=== PATIENT | female | born 1995 | race Caucasian/White ===

== ENCOUNTER 2017-09-28 17:40 | Emergency (ER) | payer OTHER ==
[~2017-09-28] VITALS: Ht 157.5 cm; Wt 49.0 kg
[~2017-09-28 17:40] MED LIST: DEPO150I IM
[2017-09-28 17:42] VITALS: BP 117/76; PULSE 80; RESP 14; TEMP 98.9; O2SAT 99
[2017-09-28] MEDS ORDERED: [UNRECOGNIZED DRUG - CODE] (17:55)
--- NOTE | 2017-09-28 18:44 | PD ---
HPI . Sore throat x 5 days Chief Complaint: ENT Complaint Time Seen by Provider: 18:23 Travel History International Travel<30 days: No Contact w/Intl Traveler<30days: No Traveled to known affect area: No History of Present Illness HPI 22 year old female presents to the emergency department for evaluation of sore throat and low-grade fevers x 5 days. She denies any ear pain, cough, chest pain, shortness breath. Patient denies any major medical history and doesn't take any daily medication. 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 [facility] Social History Alcohol Use: No Tobacco Use: No Substance Use: No Allergies-Medications (Allergen,Severity, Reaction): Coded Allergies: No Known Allergies (Verified Adverse Reaction, Unknown, 09/28/17) Reported Meds & Prescriptions Reported Meds & Active Scripts Active Depo-Provera Inj (Medroxyprogesterone Inj) 150 Mg/Ml Inj 150 Mg IM Q90D Reported Cold & Flu Fighter Cap (C/Ech/Stjwort/Eldr/Sging/Hrb30) 1 Each Capsule Review of Systems Except as stated in HPI: all other systems reviewed are Neg HENT: Positive: Sore Throat Physical Exam Narrative GENERAL: Well-nourished, well-developed 22 year old female patient in no acute distress. Nontoxic appearing. SKIN: Focused skin assessment warm/dry. HEAD: Normocephalic. Atraumatic. EYES: No scleral icterus. No injection or drainage. EARS: Bilateral pinnae and external canals appear within normal limits. Bilateral tympanic membranes without erythema, dullness or perforation. THROAT: Mild to moderate pharyngeal injection with and tonsillar hypertrophy. Uvula is midline. Airway is patent. NECK: Supple, trachea midline. No JVD or lymphadenopathy. CARDIOVASCULAR: Regular rate and rhythm without murmurs, gallops, or rubs. RESPIRATORY: Breath sounds equal bilaterally. No accessory muscle use. GASTROINTESTINAL: Abdomen soft, non-tender, nondistended. MUSCULOSKELETAL: No cyanosis, or edema. Data Data Last Documented VS Vital Signs Date Time Temp Pulse Resp B/P (MAP) Pulse Ox O2 Delivery O2 Flow Rate FiO2 09/28/17 17:42 98.9 80 14 117/76 (90) 99 Orders Orders Group A Rapid Strep Screen (09/28/17 18:27) Strep Culture (Group A) (09/28/17 18:40) [facility] Medical Decision Making Medical Screen Exam Complete: Yes Emergency Medical Condition: Yes Differential Diagnosis Differential diagnoses include but not limited to pharyngitis, URI, viral syndrome Narrative Course 22-year-old female presents to emergency room for evaluation of sore throat and fever 5 days. Rapid strep ordered and pending. Rapid strep negative. Patient discharged home. Patient given instructions for supportive care, told to return to emergency department with any worsening condition but otherwise follow up with her primary care. Diagnosis Primary Impression: Viral upper respiratory illness Referrals: Primary Care Physician Patient Instructions: General Instructions, Upper Respiratory Infection (ED) Additional Instructions: Please return to emergency department if your symptoms return or worsen. Follow up with your primary care provider. Take medications as prescribed. Taking [id number] ibuprofen and Tylenol as a for pain or fever. Supportive care, stay hydrated, get enough rest, diet as tolerated. Disposition: 01 DISCHARGE HOME Condition: Stable Halie Duran Sep 28, 2017 18:44
== END 2017-09-28 20:39 | disposition home or self-care (01) ==
LOC: NEPK 17:40
DX: J06.9 Acute upper respiratory infection, unspecified (principal)
CPT/HCPCS: 87081; 87880; 99283

== ENCOUNTER 2018-08-05 16:18 | Observation (INO) ==
[2018-08-05] MEDS ORDERED: Famotidine 20 MG Tablet PO ONE (17:11)
--- NOTE | 2018-08-05 17:16 | ED ---
HPI General Chief complaint: Skin/Abscess/Foreign Body Stated complaint: BREAK-OUT IN HIVES XY Time Seen by Provider: 08/05/18 16:40 Source: patient Mode of arrival: ambulatory Limitations: no limitations History of Present Illness HPI narrative: 23-year-old approximately 9-week female presents to the emergency room for evaluation of generalized hives that started yesterday. Patient states symptoms started on her abdomen and has since spread to the rest of her body. She took [id number] Benadryl without any relief in symptoms. She denies any new exposure to food, medication, or environment. Denies any fever, chills, nausea, vomiting. No chronic medical conditions or daily medications. No history of eczema. She has not seen an [employer] GENER[employer] MANAGER yet. MD complaint: Reports rash Onset (ago): day(s) Tetanus Immunization: <5 Years Location: Reports generalized Severity: severe Severity scale (1-10): 10 Quality: Reports pruritic Pain Consistency: constant Relieving factors: none Exacerbating factors: none Context: Reports none Associated symptoms: Reports denies other symptoms Treatments prior to arrival: Reports Benadryl Related Data Home Medications Medication Instructions Recorded Confirmed diphenhydramine HCl [Benadryl] 50 mg PO Q4-6H PRN 08/05/18 08/05/18 Previous Rx's Medication Instructions Recorded cetirizine 10 mg PO DAILY #30 tab 08/05/18 famotidine 10 mg PO DAILY #15 tab 08/05/18 epinephrine 0.3 mg/m2 SUBCUT Q15M #3 ml 08/06/18 Allergies Allergy/AdvReac Type Severity Reaction Status Date / Time No Known Allergies Allergy Verified 08/05/18 16:20 Review of Systems ROS: all other systems reviewed are negative PMFSH Medical History Medical History No active medical problems (Acute) (Acute) Surgical History Surgical History H/O breast surgery (Acute) Family History Family History Other Adopted person Social History Social History Substance History: No History of Abuse Second Hand Smoke Exposure: No Smoking Status: Former smoker Tobacco Type: Cigarettes How Often Do You Have a Drink Containing Alcohol: Monthly or less Recent [facility] within the Last 8 Weeks: No Recent Out of Country Travel within the Last 8 Weeks: No Immunization History Tetanus Immunization: <5 Years Exam Narrative Exam Narrative: GENERAL: Well-nourished, well-developed female no acute distress. Afebrile. Ambulatory. SKIN: Focused skin assessment warm/dry. Generalized erythematous plaques and urticaria especially on the abdomen, upper and lower extremities, and back. HEAD: Normocephalic. EYES: No scleral icterus. No injection or drainage. NECK: Supple, trachea midline. No JVD or lymphadenopathy. CARDIOVASCULAR: Regular rate and rhythm without murmurs, gallops, or rubs. RESPIRATORY: Breath sounds equal bilaterally. No accessory muscle use. PSYCHIATRIC: No delusional thought processes. No hallucinations. Course Initial Documented Vital Signs Temperature 99 F 08/05/18 16:20 Pulse Rate 82 08/05/18 16:20 Respiratory Rate 18 08/05/18 16:20 Blood Pressure 116/60 08/05/18 16:20 Pulse Oximetry 100 08/05/18 16:20 Last Documented Vital Signs Temperature 98.7 F 08/06/18 08:00 Pulse Rate 90 08/06/18 08:00 Respiratory Rate 18 08/06/18 08:00 Blood Pressure 97/50 L 08/06/18 08:00 Pulse Oximetry 100 08/06/18 08:00 Critical Care Time Critical Care Time: Yes Total Critical Care Time: 40 Attestation: Aggregate critical care time was 40 minutes. Time to perform other separately billable procedures was not included in the critical care time. My time did not include minutes spent treating any other patients simultaneously or on activities that did not directly contribute to the patient's treatment. The services I provided to this patient were to treat and/or prevent clinically significant deterioration that could result in: cardiovascular collapse and . I provided critical care services requiring my management, as noted below: Chart data review, documentation time, medication orders and management, vital sign assessments/reviewing monitor data, ordering and reviewing lab tests, ordering and interpreting/reviewing x-rays and diagnostic studies, care of the patient and discussion of the patient with the admitting physicians. Medical Decision Making ALEX Attestation ALEX supervised visit: Yes Attestation: I, Dr. Mcpherson, have reviewed the advance practice practitioner's documentation and am in agreement, met with the patient face to face, made the diagnosis, and the medical decision making was done by me. *My assessment and Findings: Urticaria vs. allergic reaction vs. anaphylaxis 23yo F who is 9 weeks was initially evaluated by my PA in the fast track area. She had hives that started yesterday and was given cetirizine and famotidine. However, while in the ED, pt's lower lip started to swell and her hives got worst. +Itching. Pt was then transferred to medical bed and placed on sharemilker and epinephrine and NS IVF was given. Pt reevaluated at bedside and feels better. Lungs are clear. Uvula is midline and not edematous. Ther is mild left lower lip swelling. Pt is speaking in complete sentences. +Urticaria in abdomen, and bilateral extremities. Pt has no abdominal pain. Denies any vaginal bleeding. Said she does not want to keep this . Even though pt does not plan to keep this , I informed her of the risks of epinephrine but felt that in the setting of anaphylaxis, benefits outweigh risks and pt agrees to use it. Pt given diphenhydramine as well since her hives returned and was getting worst. Hives has improved after diphenhydramine. No longer has lip swelling. Denies any sob. BP is a little low but pt said this is her normal. I reevaluated pt at bedside and was able to send her home when her face started having urticaria and there is edema immediately right of her lip. At this point, it has been about 3 hours since her last epinephrine and I am concern about swelling around her mouth so second epinephrine given. Will observed pt overnight tonight. Discussed with Dr. Garcia and accepted to her service. [facility] Narrative Medical decision making narrative: 23-year-old approximately 9-week female presents the emergency room for evaluation of generalized hives that started yesterday and have worsened today. She denies any new changes in environment, food, or medication. She has been taking Benadryl without relief in symptoms. Physical exam reveals urticaria to the entire body especially on the abdomen and lower extremities. Patient was given cetirizine and famotidine in the emergency room and discharged with prescription for cetirizine. Told to follow-up with an [employer] MANAGER. Told to return for worsening symptoms. She understands and agrees to plan. Medical Screen Exam Complete: Yes Emergency Medical Condition: Yes Differential Diagnosis Differential Diagnosis: PUPPP, atopic dermatitis, allergic reaction, urticaria Lab Data Result diagrams: 08/06/18 05:17 08/06/18 05:17 Lab Results 08/05/18 08/05/18 08/06/18 Range/Units 20:50 20:50 05:17 CBC w Diff Auto diff final Auto diff final WBC 11.3 H 10.0 (4.0-11.0) th/mm3 RBC 3.77 L 4.04 (4.00-5.30) mil/mm3 Hgb 11.3 L 12.3 (11.6-15.3) gm/dL Hct 34.0 L 36.8 (35.0-46.0) % MCV 90.3 91.1 (80.0-100.0) fL MCH 30.1 30.5 (27.0-34.0) pg MCHC 33.3 33.5 (32.0-36.0) % RDW 13.2 13.0 (11.6-17.2) % Plt Count 201 208 (150-450) th/mm3 MPV 8.6 9.5 (7.0-11.0) fL Neut % (Auto) 74.7 H 94.7 H (16.0-70.0) % Lymph % (Auto) 21.5 5.0 L (9.0-44.0) % [place] % (Auto) 3.0 0.1 (0.0-8.0) % Eos % (Auto) 0.1 0.1 (0.0-4.0) % Baso % (Auto) 0.7 0.1 (0.0-2.0) % Neut # (Auto) 8.4 H 9.5 H (1.8-7.7) th/mm3 Lymph # (Auto) 2.4 0.5 L (1.0-4.8) th/mm3 [place] # (Auto) 0.3 0.0 (0.0-0.9) th/mm3 Eos # (Auto) 0.0 0.0 (0.0-0.4) th/mm3 Baso # (Auto) 0.1 0.0 (0.0-0.2) th/mm3 WBC Differential . . Differential Comment . . Sodium 139 (136-145) meq/L Potassium 3.4 L (3.5-5.1) meq/L Chloride 107 (98-107) meq/L Carbon Dioxide 23.8 (21.0-32.0) meq/L Anion Gap 8 (5-15) meq/L BUN 11 (7-18) mg/dL Creatinine 0.48 L (0.50-1.00) mg/dL Estimated GFR Greater than 89 (>89) mL/min Random Glucose 108 H (74-106) mg/dL Calcium 7.5 L (8.5-10.1) mg/dL Total Bilirubin 0.2 (0.2-1.0) mg/dL AST 15 (15-37) U/L ALT 14 (10-53) U/L Alkaline Phosphatase 35 L (45-117) U/L Total Protein 6.3 L (6.4-8.2) g/dL Albumin 3.1 L (3.4-5.0) g/dL Ur Collection Type Urine Color (Yellw/Straw) Urine Clarity (Clear) Urine pH (5.0-8.5) Ur Specific [place] (1.002-1.035) Urine Protein (Neg-Trace) mg/dL Urine Glucose (UA) (Negative) mg/dL Urine Ketones (Negative) mg/dL Urine Occult Blood (Negative) Urine Nitrate (Negative) Urine Bilirubin (Negative) Urine Urobilinogen (Less than 2) mg/dL Ur Leukocyte Esterase (Negative) Urine RBC (0-3) /hpf Ur Squamous Epith Cells (0-5) /hpf Micro UA Comment Ur Microscopic Review Urine Culture Comments 08/06/18 08/06/18 Range/Units 05:17 08:05 CBC w Diff WBC (4.0-11.0) th/mm3 RBC (4.00-5.30) mil/mm3 Hgb (11.6-15.3) gm/dL Hct (35.0-46.0) % MCV (80.0-100.0) fL MCH (27.0-34.0) pg MCHC (32.0-36.0) % RDW (11.6-17.2) % Plt Count (150-450) th/mm3 MPV (7.0-11.0) fL Neut % (Auto) (16.0-70.0) % Lymph % (Auto) (9.0-44.0) % [place] % (Auto) (0.0-8.0) % Eos % (Auto) (0.0-4.0) % Baso % (Auto) (0.0-2.0) % Neut # (Auto) (1.8-7.7) th/mm3 Lymph # (Auto) (1.0-4.8) th/mm3 [place] # (Auto) (0.0-0.9) th/mm3 Eos # (Auto) (0.0-0.4) th/mm3 Baso # (Auto) (0.0-0.2) th/mm3 WBC Differential Differential Comment Sodium 137 (136-145) meq/L Potassium 3.7 (3.5-5.1) meq/L Chloride 105 (98-107) meq/L Carbon Dioxide 22.4 (21.0-32.0) meq/L Anion Gap 10 (5-15) meq/L BUN 7 (7-18) mg/dL Creatinine 0.52 (0.50-1.00) mg/dL Estimated GFR Greater than 89 (>89) mL/min Random Glucose 141 H (74-106) mg/dL Calcium 8.3 L D (8.5-10.1) mg/dL Total Bilirubin 0.3 (0.2-1.0) mg/dL AST 15 (15-37) U/L ALT 18 (10-53) U/L Alkaline Phosphatase 45 (45-117) U/L Total Protein 7.3 D (6.4-8.2) g/dL Albumin 3.5 (3.4-5.0) g/dL Ur Collection Type Clean catch Urine Color Yellow (Yellw/Straw) Urine Clarity Clear (Clear) Urine pH 5.5 (5.0-8.5) Ur Specific [place] 1.020 (1.002-1.035) Urine Protein Negative (Neg-Trace) mg/dL Urine Glucose (UA) 1000 or greater H (Negative) mg/dL Urine Ketones 40 H (Negative) mg/dL Urine Occult Blood Trace (Negative) Urine Nitrate Negative (Negative) Urine Bilirubin Negative (Negative) Urine Urobilinogen 0.2 (Less than 2) mg/dL Ur Leukocyte Esterase Negative (Negative) Urine RBC 0-3 (0-3) /hpf Ur Squamous Epith Cells 0-5 (0-5) /hpf Micro UA Comment Culture not ind Ur Microscopic Review Microscopic reviewed Urine Culture Comments Culture not ind Discharge Plan Discharge Disposition Patient Disposition: 30 Still Patient Discharge Condition Condition: Stable Discharge Order Discharge Orders: Discharge Order (Routine); Ordered 08/06/18 Ordered By: Jamie Spears Discharge Details Diagnosis: Anaphylaxis Physicians Team ED Provider: Penny Mcpherson ED Midlevel Provider: Ngozi France Primary Care Provider: UNKNOWN, Attending Provider: Jamie Spears Status ED Status: Left Department Discharge Information Discharge Date/Time: 08/05/18 23:03 Addendum entered and electronically signed by PRINCE Hanna 08/05/18 21:30 : Upon discharge, the patient began to experience lip swelling and an acute exacerbation of hives. This came on suddenly and in the 15 minutes between being seen and discharged despite having symptoms for the past 2 days. She was given IM epinephrine and placed on cardiac telemetry. Patient was transferred to the medical pod and care was transferred to the attending physician.
[2018-08-05] MEDS ORDERED: Sod Chloride 0.9% Inj 1,000 ML IV.SIG SCH ×3 (17:30→20:30)
[2018-08-05] MEDS ORDERED: Bisacodyl 10 MG Supp RECTAL PRN (20:36)
[2018-08-05] MEDS: MethylPREDNISolone Sod Succinate Inj 40 MG/ML Vial IV.PUSH SCH (20:56)
[2018-08-05 21:13] LABS: Baso # (Auto) 0.1 th/mm3 (0.0-0.2); Baso % (Auto) 0.7 % (0.0-2.0); Eos % (Auto) 0.1 % (0.0-4.0); Hemoglobin 11.3 gm/dL (11.6-15.3); Lymph # (Auto) 2.4 th/mm3 (1.0-4.8); Lymph % (Auto) 21.5 % (9.0-44.0); Mean Corpuscular HGB Conc 33.3 % (32.0-36.0); Mean Corpuscular Hemoglobin 30.1 pg (27.0-34.0); Mean Corpuscular Volume 90.3 fL (80.0-100.0); Mean Platelet Volume 8.6 fL (7.0-11.0); Mono # (Auto) 0.3 th/mm3 (0.0-0.9); Neut # (Auto) 8.4 th/mm3 (1.8-7.7); Neut % (Auto) 74.7 % (16.0-70.0); Platelet Count 201 th/mm3 (150-450); Red Blood Count 3.77 mil/mm3 (4.00-5.30); Red Cell Distribution Width 13.2 % (11.6-17.2); White Blood Count 11.3 th/mm3 (4.0-11.0)
[2018-08-05 21:22] LABS: Chloride 107 meq/L (98-107); Potassium 3.4 meq/L (3.5-5.1); Sodium 139 meq/L (136-145)
[2018-08-05 21:25] LABS: Albumin 3.1 g/dL (3.4-5.0); Anion Gap 8 meq/L (5-15); Calcium 7.5 mg/dL (8.5-10.1); Carbon Dioxide 23.8 meq/L (21.0-32.0); Glucose,Random 108 mg/dL (74-106)
[2018-08-05 21:26] LABS: Blood Urea Nitrogen 11 mg/dL (7-18)
[2018-08-05] MEDS: Sod Chloride 0.9% Inj 1,000 ML IV.CONT SCH (21:27)
[2018-08-05 21:28] LABS: Alanine Aminotransferase 14 U/L (10-53); Aspartate Aminotransferase 15 U/L (15-37)
[2018-08-05 21:29] LABS: Glomerular Filtration Rate Greater Than 89 mL/min (>89)
[2018-08-05 21:30] LABS: Total Protein 6.3 g/dL (6.4-8.2)
[2018-08-05 21:31] LABS: Alkaline Phosphatase 35 U/L (45-117)
[2018-08-05] MEDS: Senna/Docusate Sodium 8.6/50 MG Tablet PO SCH (21:41)
[2018-08-06] MEDS: Acetaminophen 325 MG Tablet PO PRN ×2 (00:42→05:28)
[2018-08-06] MEDS: MethylPREDNISolone Sod Succinate Inj 40 MG/ML Vial IV.PUSH SCH ×2 (02:45→08:35)
[2018-08-06 06:42] LABS: Baso % (Auto) 0.1 % (0.0-2.0); Eos % (Auto) 0.1 % (0.0-4.0); Hematocrit 36.8 % (35.0-46.0); Hemoglobin 12.3 gm/dL (11.6-15.3); Lymph # (Auto) 0.5 th/mm3 (1.0-4.8); Mean Corpuscular HGB Conc 33.5 % (32.0-36.0); Mean Corpuscular Hemoglobin 30.5 pg (27.0-34.0); Mean Corpuscular Volume 91.1 fL (80.0-100.0); Mean Platelet Volume 9.5 fL (7.0-11.0); Mono % (Auto) 0.1 % (0.0-8.0); Neut # (Auto) 9.5 th/mm3 (1.8-7.7); Neut % (Auto) 94.7 % (16.0-70.0); Platelet Count 208 th/mm3 (150-450); Red Blood Count 4.04 mil/mm3 (4.00-5.30)
[2018-08-06 06:49] LABS: Chloride 105 meq/L (98-107); Potassium 3.7 meq/L (3.5-5.1); Sodium 137 meq/L (136-145)
[2018-08-06 07:00] LABS: Alanine Aminotransferase 18 U/L (10-53); Albumin 3.5 g/dL (3.4-5.0); Alkaline Phosphatase 45 U/L (45-117); Anion Gap 10 meq/L (5-15); Aspartate Aminotransferase 15 U/L (15-37); Blood Urea Nitrogen 7 mg/dL (7-18); Calcium 8.3 mg/dL (8.5-10.1); Carbon Dioxide 22.4 meq/L (21.0-32.0); Glomerular Filtration Rate Greater Than 89 mL/min (>89); Glucose,Random 141 mg/dL (74-106); Total Protein 7.3 g/dL (6.4-8.2)
[2018-08-06 08:34] LABS: Bilirubin,Urine Negative (Negative); Clarity,Urine Clear (Clear); Color,Urine Yellow (Yellw/Straw); Leukocyte Esterase,Urine Negative (Negative); Nitrite,Urine Negative (Negative); PH,Urine 5.5 (5.0-8.5); Urobilinogen,Urine 0.2 mg/dL (Less than 2)
[2018-08-06] MEDS: Senna/Docusate Sodium 8.6/50 MG Tablet PO SCH (08:34)
[2018-08-06] MEDS: Sod Chloride 0.9% Inj 1,000 ML IV.CONT SCH (08:35)
[2018-08-06 08:58] LABS: RBC,Urine 0-3 /hpf (0-3); Squamous Epithelial Cell,Urine 0-5 /hpf (0-5)
[2018-08-06] MEDS ORDERED: Famotidine PF Inj 20 MG/2 ML Vial IV.PUSH SCH (09:00)
--- NOTE | 2018-08-06 10:56 | P.HP ---
History of Present Illness Primary Care Physician: UNKNOWN Chief Complaint: Urticaria History of Present Illness: 23-year-old female approximately 9 weeks presented to the ED yesterday for evaluation of urticaria, generalized hives mostly located to her stomach which spread to her upper extremities. While in the ED, patient was noted to have lip swelling. Was treated initially with epinephrine x2 with improvement of symptoms. Denies any improvement with Benadryl. Patient denies any prior history. She denies any exposure, detergents change, diet change. This a.m., patient again receive her third dose of epinephrine IM due to hives. Patient states she does not want her . She has no chest pain or shortness of breath. - Diagnosis (1) Urticaria of unknown origin (2) Anaphylaxis Review of Systems All other systems reviewed negative except as stated in HPI PMFSH - History History Provided By: Patient - Medical History Medical History: Medical History (Last Updated 08/05/18 @ 16:32 by Anitra Blackburn RN) No active medical problems - Surgical History Surgical History: Surgical History (Last Updated 08/05/18 @ 16:32 by Anitra Blackburn RN) H/O breast surgery - Family History Family History: Family History (Last Updated 08/06/18 @ 10:52 by Jamie Spears MD) Other Adopted person - Tobacco History Second Hand Smoke Exposure: No Tobacco Use In Past 30 Days: Yes Smoking Status: Former smoker Tobacco Type: Cigarettes - Alcohol History How Often Do You Have a Drink Containing Alcohol: Monthly or less - Substance Use History Substance History: No History of Abuse - Travel History Recent Travel in the [facility] Within the Last 8 Weeks: No Recent Travel Out of the Country Within the Last 8 Weeks: No - Immunization History Tetanus Immunization: <5 Years Medications and Allergies Active Medications: Active Medications Acetaminophen (Tylenol) 650 mg PO Q4H PRN PRN Reason: Temp > 100.4 Last Admin: 08/06/18 05:28 Dose: 650 mg Al Hydroxide/Mg Hydroxide (Milk Of Magnesia Liq) 30 ml PO Q12H PRN PRN Reason: Mild Constipation Bisacodyl (Dulcolax Supp) 10 mg RECTAL DAILY PRN PRN Reason: SEVERE CONSITIPATION Diphenhydramine HCl (Benadryl Inj) 50 mg IV.PUSH Q4H PRN PRN Reason: ITCHING Last Admin: 08/06/18 01:37 Dose: 50 mg Epinephrine HCl (Epinephrine (1:1000) Inj) 0.3 mg IM PRN PRN PRN Reason: Hives Last Admin: 08/06/18 05:22 Dose: 0.3 mg Famotidine (Pepcid Pf Inj) 20 mg IV.PUSH Q12HR JOSÉ ANTONIO Last Admin: 08/06/18 08:35 Dose: 20 mg Sodium Chloride (Ns Inj) 1,000 mls @ 0 mls/hr IV.SIG BOLUS JOSÉ ANTONIO Last Infusion: 08/05/18 18:24 Dose: Infused Sodium Chloride (Ns Inj) 1,000 mls @ 0 mls/hr IV.SIG BOLUS JOSÉ ANTONIO Last Infusion: 08/05/18 21:26 Dose: Infused Sodium Chloride (Ns Inj) 1,000 mls @ 0 mls/hr IV.SIG BOLUS JOSÉ ANTONIO Sodium Chloride (Ns Inj) 1,000 mls @ 100 mls/hr IV.CONT .Q10H [facility] Last Admin: 08/06/18 08:35 Dose: 100 mls/hr Lactulose (Lactulose Liq) 30 ml PO DAILY PRN PRN Reason: SEVERE CONSITIPATION Methylprednisolone Sodium Succinate (Solumedrol Inj) 40 mg IV.PUSH Q6H [facility] Last Admin: 08/06/18 08:35 Dose: 40 mg Ondansetron HCl (Zofran Inj) 4 mg IV.PUSH Q6H PRN PRN Reason: NAUSEA OR VOMITING Senna/Docusate Sodium (Roberta-Colace) 1 tab PO BID [facility] Last Admin: 08/06/18 08:34 Dose: Not Given Sennosides (Senokot) 17.2 mg PO Q12H PRN PRN Reason: Moderate Constipation Allergies Allergy/AdvReac Type Severity Reaction Status Date / Time No Known Allergies Allergy Verified 08/05/18 16:20 Home Medications Medication Instructions Recorded Confirmed Type diphenhydramine HCl [Benadryl] 50 mg PO Q4-6H PRN 08/05/18 08/05/18 History Exam Vital signs: Vital Signs 08/05/18 16:20 08/05/18 17:27 08/05/18 18:03 Temperature 99 F Pulse Rate 81 82 82 Respiratory Rate 18 18 Blood Pressure 102/58 L 102/58 L Pulse Oximetry 100 98 08/05/18 19:23 08/05/18 19:56 08/05/18 20:35 Temperature Pulse Rate 101 H 92 H 87 Respiratory Rate 16 16 16 Blood Pressure 122/57 L 122/55 L 118/67 Pulse Oximetry 97 99 08/06/18 00:00 08/06/18 04:00 08/06/18 05:38 Temperature 98.1 F 97.9 F 98.0 F Pulse Rate 85 88 98 H Respiratory Rate 16 16 Blood Pressure 111/57 L 109/54 L 126/60 Pulse Oximetry 99 99 08/06/18 08:00 Temperature 98.7 F Pulse Rate 90 Respiratory Rate 18 Blood Pressure 97/50 L Pulse Oximetry 100 Intake & Output 08/05/18 08/06/18 08/06/18 18:59 06:59 18:59 Intake Total 1000 / 1000 400 / 400 1000 / 1000 Balance 1000 / 1000 400 / 400 1000 / 1000 Weight 52 kg 54.6 kg Intake: IV 1000 / 1000 400 / 400 1000 / 1000 NS Inj 1,000 ML @ 100 mls/hr IV 1000 / 1000 .CONT .Q10H JOSÉ ANTONIO Rx#:[id number] NS Inj 1,000 ML @ Wide Open IV. 1000 / 1000 400 / 400 SIG BOLUS JOSÉ ANTONIO Rx#:[id number] Other: # Voids 6 Weight On Admission 54.6 kg Narrative: GENERAL: NAD SKIN: Warm and dry. HEAD: Atraumatic. Normocephalic. EYES: Pupils equal and round. No scleral icterus. No injection or drainage. ENT: No nasal bleeding or discharge. Mucous membranes pink and moist. NECK: Trachea midline. No JVD. CARDIOVASCULAR: Regular rate and rhythm. RESPIRATORY: No accessory muscle use. Clear to auscultation. Breath sounds equal bilaterally. GASTROINTESTINAL: Abdomen soft, non-tender, nondistended. Hepatic and splenic margins not palpable. MUSCULOSKELETAL: Extremities without clubbing, cyanosis, or edema. No obvious deformities. NEUROLOGICAL: Awake and alert. No obvious cranial nerve deficits. Motor grossly within normal limits. Five out of 5 muscle strength in the arms and legs. Normal speech. PSYCHIATRIC: Appropriate mood and affect; insight and judgment normal. Results - Labs CBC & Chem 7: 08/06/18 05:17 08/06/18 05:17 Labs: Laboratory Results - last 24 hr 08/05/18 08/05/1818 20:50 20:50 05:17 CBC w Diff Auto diff final Auto diff final WBC 11.3 H 10.0 RBC 3.77 L 4.04 Hgb 11.3 L 12.3 Hct 34.0 L 36.8 MCV 90.3 91.1 MCH 30.1 30.5 MCHC 33.3 33.5 RDW 13.2 13.0 Plt Count 201 208 MPV 8.6 9.5 Neut % (Auto) 74.7 H 94.7 H Lymph % (Auto) 21.5 5.0 L [place] % (Auto) 3.0 0.1 Eos % (Auto) 0.1 0.1 Baso % (Auto) 0.7 0.1 Neut # (Auto) 8.4 H 9.5 H Lymph # (Auto) 2.4 0.5 L [place] # (Auto) 0.3 0.0 Eos # (Auto) 0.0 0.0 Baso # (Auto) 0.1 0.0 WBC Differential . . Differential Comment . . Sodium 139 Potassium 3.4 L Chloride 107 Carbon Dioxide 23.8 Anion Gap 8 BUN 11 Creatinine 0.48 L Estimated GFR Greater than 89 Random Glucose 108 H Calcium 7.5 L Total Bilirubin 0.2 AST 15 ALT 14 Alkaline Phosphatase 35 L Total Protein 6.3 L Albumin 3.1 L Ur Collection Type Urine Color Urine Clarity Urine pH Ur Specific Ralph Urine Protein Urine Glucose (UA) Urine Ketones Urine Occult Blood Urine Nitrate Urine Bilirubin Urine Urobilinogen Ur Leukocyte Esterase Urine RBC Ur Squamous Epith Cells Micro UA Comment Ur Microscopic Review Urine Culture Comments 08/06/18 08/06/18 05:17 08:05 CBC w Diff WBC RBC Hgb Hct MCV MCH MCHC RDW Plt Count MPV Neut % (Auto) Lymph % (Auto) [place] % (Auto) Eos % (Auto) Baso % (Auto) Neut # (Auto) Lymph # (Auto) [place] # (Auto) Eos # (Auto) Baso # (Auto) WBC Differential Differential Comment Sodium 137 Potassium 3.7 Chloride 105 Carbon Dioxide 22.4 Anion Gap 10 BUN 7 Creatinine 0.52 Estimated GFR Greater than 89 Random Glucose 141 H Calcium 8.3 L D Total Bilirubin 0.3 AST 15 ALT 18 Alkaline Phosphatase 45 Total Protein 7.3 D Albumin 3.5 Ur Collection Type Clean catch Urine Color Yellow Urine Clarity Clear Urine pH 5.5 Ur Specific Ralph 1.020 Urine Protein Negative Urine Glucose (UA) 1000 or greater H Urine Ketones 40 H Urine Occult Blood Trace Urine Nitrate Negative Urine Bilirubin Negative Urine Urobilinogen 0.2 Ur Leukocyte Esterase Negative Urine RBC 0-3 Ur Squamous Epith Cells 0-5 Micro UA Comment Culture not ind Ur Microscopic Review Microscopic reviewed Urine Culture Comments Culture not ind Caprini VTE Risk Assessment Caprini VTE Risk Assessment: No/Low Risk (score <= 1) Caprini Risk Assessment Model: Point Value = 1 Point Value = 2 Point Value = 3 Point Value = 5 Age 41-60 Minor surgery BMI > 25 kg/m2 Swollen legs Varicose veins or History of unexplained or recurrent spontaneous Oral contraceptives or hormone replacement Sepsis (< 1 month) Serious lung disease, including pneumonia (< 1 month) Abnormal pulmonary function Acute myocardial infarction Congestive heart failure (< 1 month) History of inflammatory bowel disease Medical patient at bed rest Age 61-74 Arthroscopic surgery Major open surgery (> 45 min) Laparoscopic surgery (> 45 min) Malignancy Confined to bed (> 72 hours) Immobilizing plaster cast Central venous access Age >= 75 History of VTE Family history of VTE Factor V Leiden Prothrombin [id number] Lupus anticoagulant Anticardiolipin antibodies Elevated serum homocysteine Heparin-induced thrombocytopenia Other congenital or acquired thrombophilia Stroke (< 1 month) Elective arthroplasty Hip, pelvis, or leg fracture Acute spinal cord injury (< 1 month) Prophylaxis Regimen: Total Risk Factor Score Risk Level Prophylaxis Regimen 0-1 Low Early ambulation 2 Moderate Order ONE of the following: *Sequential Compression Device (SCD) *Heparin 5000 units SQ BID 3-4 Higher Order ONE of the following medications: *Heparin 5000 units SQ TID *Enoxaparin/Lovenox 40 mg SQ daily (WT < 150 kg, CrCl > 30 mL/min) *Enoxaparin/Lovenox 30 mg SQ daily (WT < 150 kg, CrCl > 10-29 mL/min) *Enoxaparin/Lovenox 30 mg SQ BID (WT < 150 kg, CrCl > 30 mL/min) AND/OR *Sequential Compression Device (SCD) 5 or more Highest Order ONE of the following medications: *Heparin 5000 units SQ TID (Preferred with Epidurals) *Enoxaparin/Lovenox 40 mg SQ daily (WT < 150 kg, CrCl > 30 mL/min) *Enoxaparin/Lovenox 30 mg SQ daily (WT < 150 kg, CrCl > 10-29 mL/min) *Enoxaparin/Lovenox 30 mg SQ BID (WT < 150 kg, CrCl > 30 mL/min) AND *Sequential Compression Device (SCD) Assessment and Plan - Assessment (1) Urticaria of unknown origin Code(s): L50.9 - Urticaria, unspecified Status: Acute (2) Anaphylaxis Code(s): T78.2XXA - Anaphylactic shock, unspecified, initial encounter Status : Acute - Plan 23-year-old female with Urticaria of unknown origin Anaphylaxis, type 4 sensitivity reaction May be secondary to current state Patient seemed to improve only with epinephrine IM She was advised to follow outpatient with addictions recovery specialist as well as OB Intrauterine Patient advised to follow outpatient with OB, as she wished to no longer carry this Will discharge patient home Discharge patient to home Condition on discharge: Improved Regular Diet as tolerated Ad Augustina activity Rx written: See EMR Follow-up with primary care physician OB, addictions recovery specialist (2) Anaphylaxis Qualifiers: Encounter type: initial encounter Qualified Code(s): T78.2XXA - Anaphylactic shock, unspecified, initial encounter
== END 2018-08-06 12:00 | disposition home or self-care (01) ==
LOC: PHEDA 16:18 → PHEFT 16:18 → PH3 22:38
PROVIDERS: ADMIT Hospitalist; ATTEND Hospitalist
DX: F17.210 Nicotine dependence, cigarettes, uncomplicated; O99.331 Smoking (tobacco) complicating pregnancy, first trimester; Z3A.09 9 weeks gestation of pregnancy; O9A.211 Injury, poisoning and certain other consequences of external causes complicating pregnancy, first trimester; L50.9 Urticaria, unspecified; T78.2XXA Anaphylactic shock, unspecified, initial encounter